=== PATIENT | female | born 1980 | race Caucasian/White ===

== ENCOUNTER 2018-10-22 09:18 | Emergency (ER) | payer SELFPAY ==
[~2018-10-22] VITALS: Ht 162.6 cm; Wt 79.5 kg
[2018-10-22] MEDS ORDERED: BUPR100T5 PO (09:39)
[2018-10-22] MEDS ORDERED: PROZ10 PO (09:39)
[2018-10-22 11:38] VITALS: BP 128/89
== END 2018-10-22 11:43 | disposition home or self-care (01) ==
LOC: EMS 09:20
DX: S50.01XA Contusion of right elbow, initial encounter (principal); S50.11XA Contusion of right forearm, initial encounter; Y35.893A Legal intervention involving other specified means, suspect injured, initial encounter; Y93.89 Activity, other specified; Y92.89 Other specified places as the place of occurrence of the external cause; Y99.8 Other external cause status